=== PATIENT | male | born 1990 | race Caucasian/White ===

== ENCOUNTER 2016-09-28 21:24 | Emergency (ER) | payer OTHER ==
[~2016-09-28] VITALS: Ht 170.2 cm; Wt 71.5 kg
[2016-09-28 21:27] VITALS: Ht 170.2 cm; Wt 71.5 kg
--- NOTE | 2016-09-28 23:17 | RADRPT ---
PROCEDURE: CT brain without contrast CLINICAL INDICATION: Headaches TECHNIQUE: A CT of the brain was performed utilizing axial sections from the skull base through th e vertex without contrast. Sagittal and coronal images were also reformatted. The exam CTDIvol = 45. 01 mGy and DLP = 720.23 mGy-cm. COMPARISON: None available FINDINGS: No acute intracranial hemorrhage is identified. There is no mass effect or midline shift. No extra -axial fluid collection is seen. The ventricles and sulci are within normal limits for size and con figuration. The density of the brain is within normal limits. Meyers-white differentiation is preser carla. The osseous structures are unremarkable. The mastoid air cells and visualized paranasal sinuses are clear. RPTAT:HJJR IMPRESSION: Unremarkable noncontrast CT of the brain. Physician Devan Date Time Electronically viewed and signed by Physician Devan on 09/28/2016 23:17 /
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
[2016-09-28] MEDS ORDERED: ONDANSETRON (ODT) 4 MG TAB ODT STA (23:33)
[2016-09-28] MEDS ORDERED: KETOROLAC 15 MG INJ IM STA (23:33)
[2016-09-29] MEDS ORDERED: HYDROCODONE/APAP (5/325) TAB PO ONE
[2016-09-29] MEDS ORDERED: ASPI-826 PO (00:34)
== END 2016-09-29 01:46 | disposition left against medical advice (07) ==
LOC: FTE 21:24
DX: G43.109 Migraine with aura, not intractable, without status migrainosus (principal); F17.210 Nicotine dependence, cigarettes, uncomplicated
CPT/HCPCS: 70450; J1885; Z7610; 96372